=== PATIENT | female | born 1985 ===

== ENCOUNTER 2016-11-12 11:04 | Emergency (ER) | payer BC ==
[2016-11-12 11:08] VITALS: BMI 24.4
[2016-11-12 11:09] VITALS: RESP 18; TEMP 98.2
[2016-11-12] MEDS ORDERED: Amoxicillin-Clav 875-125 mg Tab PO STA (11:43)
[2016-11-12] MEDS ORDERED: Amoxicillin-Clav 875-125 mg Tab PO ONE (11:52)
--- NOTE | 2016-11-12 11:58 | C.PDOC ---
History Of Present Illness 31 yo female w/o significant PMHx come in for evaluation of URI sx for past 2-3 days associated with bodyaches, sore throat, Left earache, decrease appetite, dry cough. Otherwise, pt denies high fever, chills, severe headache, dizziness, neck pain, rash, drooling, dysphagia, dyspnea, CP, SOB, diaphoresis, wheezing, abd. pain, N/V/D, Ambulate to ED for evaluation, not in any apparent distress. Time Seen by Provider: 11/12/16 11:20 Chief Complaint (Nursing): ENT Problem History Per: Patient History/Exam Limitations: None Onset/Duration Of Symptoms: Waxing/Waning (2-3) Past Medical History Reviewed: Historical Data, Nursing Documentation, Vital Signs Vital Signs: Last Vital Signs Temp 98.2 F 11/12/16 11:08 Pulse 93 H 11/12/16 11:08 Resp 18 11/12/16 11:08 BP 128/85 11/12/16 11:08 Pulse Ox 99 11/12/16 12:15 - Medical History PMH: Migraine Family History: States: No Known Family Hx - Social History Hx Alcohol Use: No Hx Substance Use: No - Immunization History Hx Tetanus Toxoid Vaccination: No Hx Influenza Vaccination: No Hx Pneumococcal Vaccination: No Review Of Systems Except As Marked, All Systems Reviewed And Found Negative. Constitutional: Negative for: Fever, Chills ENT: Positive for: Ear Pain (Left ), Throat Pain (Sore throat ) Cardiovascular: Negative for: Chest Pain Respiratory: Positive for: Cough (Dry). Negative for: Shortness of Breath, Wheezing Gastrointestinal: Negative for: Nausea, Vomiting, Abdominal Pain, Diarrhea Musculoskeletal: Negative for: Neck Pain Skin: Negative for: Rash Neurological: Negative for: Headache, Dizziness Physical Exam - Physical Exam Appears: Well, Non-toxic, No Acute Distress Skin: Normal Color, Warm, Dry, No Rash Eye(s): bilateral: Normal Inspection Ear(s): Left: TM Erythema, Right: Normal Nose: Discharge (mild B/L congestion with scant cear rhinorhea.) Oral Mucosa: Moist, No Drooling Tongue: Normal Appearing Lips: Normal Appearing Teeth: Normal Dentition Gingiva: Normal Appearing, No Erythema, No Ulceration, No Swelling, No Abscess Throat: Erythema (mild B/L), No Exudate, No Drooling Neck: Normal, Normal ROM, Supple Cardiovascular: Rhythm Regular Respiratory: Normal Breath Sounds, No Stridor, No Wheezing Gastrointestinal/Abdominal: Normal Exam, Soft, No Tenderness Back: Normal Inspection Extremity: Normal ROM, No Pedal Edema Neurological/Psych: Oriented x3, Normal Speech ED Course And Treatment - Laboratory Results Urine POC: Negative O2 Sat by Pulse Oximetry: 99 Pulse Ox Interpretation: Normal Progress Note: On re-evaluation, pt is afebrile, hemodynamicaly stable. Non- toxic. Tolerate PO well in ED. PulseOx 99% RA. ENT: exam c/w Left otitis media. Neck: (-) meningeal sign. Lungs: CTA B/L, BS equal B/L. ABd: benign. Neurologicaly intact. UA results (-). Pt advise dand ref. to F/u with PMD in 2 -3 days for re-eavl. return if any new changes. Medical Decision Making Medical Decision Making: PLAN: * HCG Urine * Urinalysis * Augmentin PO * Motrin PO Disposition Counseled Patient/Family Regarding: Studies Performed, Diagnosis, Need For Followup, Rx Given - Disposition Referrals: [facility] [Outside] Christiano Ko MD [Staff Provider] - Disposition: HOME/ ROUTINE Disposition Time: 11:59 Condition: STABLE Additional Instructions: Encourage fluids Take medication as prescribed Follow up with PMD in 2-3 days for re-evaluation. Return to ED if any worsening or new changes. 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 - Scribe Statement The provider has reviewed the documentation as recorded by the Scribe Triny Echeverria All medical record entries made by the Scribe were at my direction and personally dictated by me. I have reviewed the chart and agree that the record accurately reflects my personal performance of the history, physical exam, medical decision making, and the department course for this patient. I have also personally directed, reviewed, and agree with the discharge instructions and disposition.
[2016-11-12 12:12] LABS: URINE BACTERIA RARE (<OCC); URINE BILIRUBIN NEGATIVE (NEGATIVE); URINE BLOOD 1+ (NEGATIVE); URINE COLOR Straw (YELLOW); URINE GLUCOSE (UA) NORMAL (Normal); URINE KETONE NEGATIVE (NEGATIVE); URINE LEUKOCYTE ESTERASE NEG Leu/uL (Negative); URINE PROTEIN NEGATIVE (NEGATIVE); URINE UROBILINOGEN NORMAL mg/dL (0.2-1.0); WBC URINE < 1 /hpf (0-5)
[2016-11-12 12:48] VITALS: BP 110/69; PULSE 71; O2SAT 98
== END 2016-11-12 12:43 | disposition home or self-care (01) ==
LOC: C.ER 11:04
DX: H66.92 Otitis media, unspecified, left ear (principal)